=== PATIENT | male | born 1955 | race Caucasian/White ===

== ENCOUNTER 2025-06-23 21:30 | Inpatient (IN) | payer MEDICARE, OTHER ==
[~2025-06-23] VITALS: Ht 165.1 cm; Wt 128.8 kg
[2025-06-23] MEDS: IV NS 0.9% 500 ML BAG IV ONE (21:54)
[2025-06-23 22:01] LABS: PLATELET COUNT (AUTO) 240 K/uL (150-450); RED BLOOD CELL COUNT(AUTO) 4.25 MIL/uL (4.5-6.0); RED CELL DISTRIBUTION WIDTH 13.8 % (11.5-15.0); WHITE BLOOD COUNT (AUTO) 8.2 K/uL (4.3-11.0)
[2025-06-23 22:07] LABS: CALCIUM, SERUM 9.0 mg/dL (8.5-10.1); CREATININE 0.9 mg/dL (0.6-1.3); SODIUM SERUM 144 mmol/L (136-145); UREA NITROGEN, BLOOD 25 mg/dL (7-18)
[2025-06-23 22:13] LABS: ALCOHOL, BLOOD < 3 mg/dL (0-10); ASPARTATE AMINOTRANSFERASE 12 U/L (15-37); TOTAL PROTEIN, SERUM 7.0 g/dL (6.4-8.2)
[2025-06-23] MEDS ORDERED: MAG HYDROX/AL HYDROX/SIMETH 30 ML UDC PO PRN (22:30)
[2025-06-23] MEDS ORDERED: Z GUARD REMEDY 4 OZ OINT TP PRN (22:30)
[2025-06-23] MEDS ORDERED: ACETAMINOPHEN 325 MG TABLET PO PRN (22:30)
[2025-06-23] MEDS ORDERED: ONDANSETRON HCL/PF 4 MG/2 ML VIAL IVP PRN (22:30)
[2025-06-23 23:27] LABS: APPEARANCE,URINE CLEAR (CLEAR); BLOOD, URINE NEGATIVE Ery/uL (NEGATIVE); LEUKOCYTE ESTERASE ,URINE NEGATIVE (NEGATIVE); NITRITE, URINE NEGATIVE (NEGATIVE); UGLUCOSE NEGATIVE (NEGATIVE)
[2025-06-23 23:33] LABS: AMPHETAMINE, URINE NEGATIVE (NEGATIVE); BARBITURATE, URINE NEGATIVE (NEGATIVE); BENZODIAZEPINE, URINE NEGATIVE (NEGATIVE); CANNABINOID, URINE NEGATIVE (NEGATIVE); COCCAINE, URINE NEGATIVE (NEGATIVE)
[2025-06-23 23:35] LABS: OPIATE, URINE POSITIVE (NEGATIVE)
[2025-06-24 01:10] VITALS: BP 126/59; TEMP 97.9; O2SAT 98
[2025-06-24] MEDS: IV NS 0.9% 1,000 ML IV PRN (01:50)
[2025-06-24] MEDS: HYDROCODONE/APAP 5/325MG TABLET PO PRN (05:00)
[2025-06-24 05:45] VITALS: O2SAT 98
[2025-06-24 06:43] LABS: PLATELET COUNT (AUTO) 207 K/uL (150-450); RED BLOOD CELL COUNT(AUTO) 4.00 MIL/uL (4.5-6.0); RED CELL DISTRIBUTION WIDTH 13.7 % (11.5-15.0); WHITE BLOOD COUNT (AUTO) 7.4 K/uL (4.3-11.0)
[2025-06-24 07:01] LABS: CALCIUM, SERUM 8.7 mg/dL (8.5-10.1); CREATININE 0.8 mg/dL (0.6-1.3); PHOSPHORUS 3.5 mg/dL (2.5-4.9); SODIUM SERUM 145.0 mmol/L (136-145); UREA NITROGEN, BLOOD 22.0 mg/dL (7-18)
[2025-06-24 07:14] LABS: LDL 21.0 mg/dL (0-99)
[2025-06-24 08:00] VITALS: BP 133/76; TEMP 97.7; O2SAT 97
[2025-06-24] MEDS: PANTOPRAZOLE 40 MG TABLET.DR PO SCH (09:17)
[2025-06-24] MEDS: ASPIRIN 81 MG TAB.CHEW PO SCH (09:18)
[2025-06-24] MEDS ORDERED: BENA40TA8 PO (10:40)
[2025-06-24] MEDS ORDERED: ACET325T53 PO (10:40)
[2025-06-24] MEDS ORDERED: MELA10TA7 PO (10:40)
[2025-06-24] MEDS ORDERED: NALO4SPR NS (10:40)
[2025-06-24] MEDS ORDERED: POTA-10 PO (10:40)
[2025-06-24] MEDS ORDERED: DOCU100C36 PO (10:40)
[2025-06-24] MEDS ORDERED: OMEP40CA21 PO (10:40)
[2025-06-24] MEDS ORDERED: PREG-58 PO (10:40)
[2025-06-24] MEDS ORDERED: OXYC5TAB3 PO (10:40)
[2025-06-24] MEDS ORDERED: HYDR-4077 PO (10:40)
[2025-06-24] MEDS ORDERED: TAMS-12 PO (10:40)
[2025-06-24] MEDS ORDERED: MAGN400O6 PO (10:40)
[2025-06-24] MEDS ORDERED: OXYB5TAB16 PO (10:40)
[2025-06-24] MEDS ORDERED: UMEC1BLS IH (10:40)
[2025-06-24] MEDS ORDERED: BISA10SU11 RC (10:40)
[2025-06-24] MEDS ORDERED: BUSP10TA3 PO (10:40)
[2025-06-24] MEDS ORDERED: NA P133E RC (10:40)
[2025-06-24] MEDS ORDERED: ASPI-1420 PO (10:40)
[2025-06-24] MEDS ORDERED: FERR325T24 PO (10:40)
[2025-06-24] MEDS ORDERED: ATOR80TA PO (10:40)
[2025-06-24] MEDS ORDERED: AMIT25TA9 PO (10:40)
[2025-06-24] MEDS ORDERED: CLOP75TA15 PO (10:40)
[2025-06-24] MEDS ORDERED: MULT-213 PO (10:40)
[2025-06-24] MEDS ORDERED: ALBU18HF2 IH (10:40)
[2025-06-24] MEDS ORDERED: OXYC10TA59 PO (10:40)
[2025-06-24] MEDS ORDERED: NALOXONE HCL 0.4 MG/ML AMPUL IV PRN (13:00)
[2025-06-24] MEDS: oxyCODONE HCL SR 10MG TAB.SR.12H PO SCH (13:30)
[2025-06-24] MEDS: AMITRIPTYLINE HCL 25 MG TABLET PO SCH (13:30)
[2025-06-24] MEDS ORDERED: BISACODYL SUPP (10 MG) 10 MG/SUPP.RECT SUPP.RECT RC PRN (13:30)
[2025-06-24] MEDS ORDERED: NA PHOS,M-B/NA PHOS,DI-BA 1 EA ENEMA RC PRN (13:30)
[2025-06-24] MEDS: OXYBUTYNIN CHLORIDE 5 MG TABLET PO SCH (15:27)
[2025-06-24] MEDS: PREGABALIN 25 MG CAPSULE PO SCH (15:27)
[2025-06-24] MEDS: FERROUS SULFATE (325 MG) 325 MG/TAB TABLET PO SCH (17:48)
[2025-06-24 20:00] VITALS: BP 127/68; TEMP 98.1; O2SAT 96
[2025-06-24] MEDS: ATORVASTATIN 40 MG TABLET PO SCH (21:09)
[2025-06-24] MEDS: TAMSULOSIN 0.4 MG CAP.SR.24H PO SCH (21:09)
[2025-06-24] MEDS ORDERED: ATORVASTATIN 40 MG TABLET PO SCH (22:00)
[2025-06-25 08:00] VITALS: BP 134/69; TEMP 98.2; O2SAT 94
[2025-06-25] MEDS: BENAZEPRIL HCL 20 MG TABLET PO SCH (09:08)
[2025-06-25] MEDS: DOCUSATE SODIUM 100 MG CAPSULE PO SCH (09:09)
[2025-06-25] MEDS: CLOPIDOGREL BISULFATE 75 MG TABLET PO SCH (09:09)
[2025-06-25] MEDS: MULTIVIT W/MINERALS 1 TAB TABLET PO SCH (09:09)
[2025-06-25 09:47] VITALS: O2SAT 94
[2025-06-25] MEDS: ALBUTEROL FS 2.5 MG/3 ML VIAL.NEB NEB PRN (09:47)
[2025-06-25 10:02] VITALS: O2SAT 98
[2025-06-25 16:00] VITALS: BP 125/64; TEMP 98.2; O2SAT 97
[2025-06-25] MEDS: GLUCERNA SHAKE 237 ML CAN PO SCH (17:42)
[2025-06-25 20:00] VITALS: BP 131/70; TEMP 97.3; O2SAT 96
[2025-06-25] MEDS: MAGNESIUM HYDROXIDE 30 ML UDC PO PRN (20:52)
[2025-06-25] MEDS: TEMAZEPAM 15 MG CAPSULE PO PRN (21:13)
[2025-06-26 08:00] VITALS: BP 124/57; TEMP 98.1; O2SAT 95
[2025-06-26] MEDS: ALBUTEROL SULFATE 8 GM HFA.AER.AD IH PRN (10:32)
[2025-06-26 16:00] VITALS: BP 123/73; TEMP 98.6; O2SAT 97
[2025-06-26 20:00] VITALS: BP 117/87; TEMP 98.4; O2SAT 95
[2025-06-26] MEDS: DOCUSATE SODIUM 100 MG CAPSULE PO SCH (21:07)
[2025-06-27 00:22] VITALS: BP 117/87; TEMP 98.4; O2SAT 95
[2025-06-27 08:00] VITALS: BP 130/79; TEMP 98.2; O2SAT 94
[2025-06-27 10:00] VITALS: BP 130/79; TEMP 98.2; O2SAT 94
[2025-06-27 16:00] VITALS: BP 124/49; TEMP 98.4; O2SAT 95
[2025-06-27 17:30] VITALS: BP 124/49
== END 2025-06-27 19:49 | DRG 948 ==
LOC: ER 21:33 → MED 06-24 00:13
DX: R53.1 Weakness (principal); I69.351 Hemiplegia and hemiparesis following cerebral infarction affecting right dominant side; E11.51 Type 2 diabetes mellitus with diabetic peripheral angiopathy without gangrene; E66.9 Obesity, unspecified; I10 Essential (primary) hypertension; Z68.42 Body mass index [BMI] 45.0-49.9, adult; E78.5 Hyperlipidemia, unspecified; R79.89 Other specified abnormal findings of blood chemistry; Z79.84 Long term (current) use of oral hypoglycemic drugs
CPT/HCPCS: 36415; 71045-TC; 80048-TC; 80061-TC; 80076-TC; 83735-TC; 84100-TC; 84443-TC; 85025-TC; 94799-TC; 97112-TC; 97116-TC; 97530-TC; 97535-TC; G0378; G0480; J7030; J7040